=== PATIENT | female | born 1980 | race Hispanic/Latino ===

== ENCOUNTER 2016-08-19 08:56 | Emergency (ER) | payer MEDICAID, OTHER ==
[2016-08-19 08:56] VITALS: BMI 23.0
[2016-08-19 09:25] VITALS: TEMP 98.7; O2SAT 99
[2016-08-19] MEDS ORDERED: Sodium Chloride 0.9% 1,000 ML IV STA (09:53)
[2016-08-19 10:13] LABS: PH,URINE 6.5 (4.7-8.0); URINE BILIRUBIN NEGATIVE (NEGATIVE); URINE BLOOD NEGATIVE (NEGATIVE); URINE GLUCOSE (UA) NEGATIVE (NEGATIVE); URINE KETONE TRACE mg/dL (NEGATIVE); URINE LEUKOCYTE ESTERASE NEGATIVE Leu/uL (NEGATIVE); URINE PROTEIN 30 mg/dL (<30 mg/dL)
[2016-08-19 10:16] LABS: URINE APPEARANCE SL CLOUDY (CLEAR); URINE COLOR YELLOW (YELLOW)
[2016-08-19 10:24] LABS: ADD MANUAL DIFF? NO
[2016-08-19 10:25] LABS: URINE BACTERIA FEW (NEG); URINE CALCIUM OXALATE CRYSTALS FEW /hpf; URINE RBC NEGATIVE /hpf (0-2); URINE WBC 0 - 2 /hpf (0-6)
[2016-08-19 10:27] LABS: BASO # 0.05 K/mm3 (0.0-2.0); BASO % 0.8 % (0.0-3.0); EOS # 0.1 (0.0-0.7); EOS % 1.2 % (1.5-5.0); GRAN # 3.41 (1.4-6.5); GRAN % 51.1 % (50.0-68.0); HEMATOCRIT 41.8 % (36.0-48.0); LYMPH # 2.7 (1.2-3.4); LYMPH % 40.4 % (22.0-35.0); MEAN CELL VOLUME 89.3 fL (80.0-105.0); MEAN CORPUSCULAR HEMOGLOBIN 30.1 pg (25.0-35.0); MEAN CORPUSCULAR HGB CONC 33.7 g/dl (31.0-37.0); MEAN PLATELET VOLUME 9.7 fl (7.0-11.0); MONO # 0.4 (0.1-0.6); MONO % 6.5 % (1.0-6.0); PLATELET COUNT 211 10^3/uL (120.0-450.0); RED CELL DISTRIBUTION WIDTH 13.8 % (11.5-14.5); WHITE BLOOD COUNT 6.7 10^3/ul (4.5-11.0)
[2016-08-19] MEDS ORDERED: DiphenhydrAMINE 50 mg/ml Inj IVP STA (10:30)
[2016-08-19 10:48] LABS: INR 1.11 (0.93-1.08); PARTIAL THROMBOPLASTIN TIME 26.4 Seconds (23.7-30.8)
[2016-08-19 10:58] LABS: ALB/GLOB RATIO 1.2 (1.1-1.8); ALKALINE PHOSPHATASE 70 U/L (38-133); ALT/SGPT 25 U/L (7-56); AST/SGOT 38 U/L (15-39); BILIRUBIN,TOTAL 0.8 mg/dL (0.2-1.3); BLOOD UREA NITROGEN 25 mg/dL (7-21); CALCIUM 9.5 mg/dL (8.4-10.5); CARBON DIOXIDE 25 mmol/L (21-33); CHLORIDE 105 mmol/L (95-110); GFR AFRICAN-AMERICAN > 60; GLUCOSE,RANDOM 96 mg/dL (70-110); LIPASE 193 U/L (23-300); POTASSIUM 3.7 mmol/L (3.6-5.0); SODIUM 142 mmol/L (132-148); TOTAL PROTEIN 7.7 g/dL (5.8-8.3)
--- NOTE | 2016-08-19 11:01 | ED PDOC ---
Arrival/HPI - General Chief Complaint: Back Pain Time Seen by Provider: 08/19/16 09:25 Past Medical History - Infectious Disease Hx of Infectious Diseases: None - Tetanus Immunization Tetanus Immunization: Unknown - Cardiac Hx Cardiac Disorders: Yes Hx Congestive Heart Failure: No Hx Hypertension: Yes - Pulmonary Hx Respiratory Disorders: Yes Hx Asthma: Yes Hx Chronic Obstructive Pulmonary Disease (COPD): No - Neurological Hx Neurological Disorder: Yes Hx Migraine: Yes Hx Seizures: No - HEENT Hx HEENT Disorder: No - Renal Hx Renal Disorder: No - Endocrine/Metabolic Hx Endocrine Disorders: Yes Hx Hypothyroidism: Yes - Hematological/Oncological Hx Blood Disorders: No - Integumentary Hx Dermatological Disorder: No - Musculoskeletal/Rheumatological Hx Musculoskeletal Disorders: Yes Hx Arthritis: No Hx Fractures: Yes (left foot) Hx Rheumatoid Arthritis: No - Gastrointestinal Hx Gastrointestinal Disorders: No - Genitourinary/Gynecological Hx Genitourinary Disorders: No Hx Sexually Transmitted Diseases: No - Psychiatric Hx Psychophysiologic Disorder: No Hx Substance Use: No - Surgical History Hx Orthopedic Surgery: Yes Hx Tubal Ligation: Yes - Anesthesia Hx Anesthesia: Yes Hx Anesthesia Reactions: No Hx Malignant Hyperthermia: No - Suicidal Assessment Feels Threatened In Home Enviroment: No Family/Social History Smoking Status: Former Smoker Hx Alcohol Use: No Hx Substance Use: No Allergies/Home Meds Allergies/Adverse Reactions: Allergies clarithromycin [From Biaxin] Allergy (Verified 08/19/16 09:22) NAUSEA Penicillins Allergy (Verified 08/19/16 09:22) RASH sumatriptan [From Imitrex] Adverse Reaction (Verified 08/19/16 09:22) ANAPHYLAXIS sumatriptan succinate [From Imitrex] Adverse Reaction (Verified 08/19/16 09:22) ANAPHYLAXIS Home Medications: Home Meds Medication Instructions Recorded Confirmed Topiramate [Topamax] 100 mg PO BID 04/13/16 08/19/16 DULoxetine [Cymbalta] 60 mg PO DAILY 08/19/16 08/19/16 Physical Exam Vital Signs Temp Pulse Resp BP Pulse Ox 08/19/16 11:41 79 18 132/79 99 08/19/16 09:23 98.7 F 89 16 134/81 99 Medical Decision Making ED Course and Treatment: 08/19/16 11:01 I was available for consultation during PA evaluation. The chart was reviewed by me, and I agree with disposition. The documented history was done by the physician slip tender. The documented physical exam was done by the physician slip tender. The documented procedures were done by the physician slip tender. - Lab Interpretations Lab Results: 08/19/16 10:15 08/19/16 10:15 Lab Results 08/19/16 10:15: Sodium 142, Potassium 3.7, Chloride 105, Carbon Dioxide 25, Anion Gap 16, BUN 25 H, Creatinine 0.6, Est GFR ( Amer) > 60, Est GFR ( Non-Af Amer) > 60, Random Glucose 96, Calcium 9.5, Total Bilirubin 0.8, AST 38, ALT 25, Alkaline Phosphatase 70, Total Protein 7.7, Albumin 4.1, Globulin 3.6, Albumin/Globulin Ratio 1.2, Lipase 193 08/19/16 10:15: PT 12.0 H, INR 1.11 H, APTT 26.4 08/19/16 10:15: WBC 6.7 D, RBC 4.68, Hgb 14.1, Hct 41.8, MCV 89.3, MCH 30.1, MCHC 33.7, RDW 13.8, Plt Count 211, MPV 9.7, Gran % 51.1, Lymph % (Auto) 40.4 H , [place] % (Auto) 6.5 H, Eos % (Auto) 1.2 L, Baso % (Auto) 0.8, Gran # 3.41, Lymph # 2.7, [place] # 0.4, Eos # 0.1, Baso # 0.05 08/19/16 09:55: Urine Color Yellow, Urine Appearance Sl cloudy, Urine pH 6.5, Ur Specific [place] 1.025, Urine Protein 30 H, Urine Glucose (UA) Negative, Urine Ketones Trace H, Urine Blood Negative, Urine Nitrate Negative, Urine Bilirubin Negative, Urine Urobilinogen 1.0 H, Ur Leukocyte Esterase Negative, Urine RBC Negative, Urine WBC 0 - 2, Ur Epithelial Cells 10 - 12, Calcium Oxalate Crystal Few, Urine Bacteria Few - RAD Interpretation Radiology Orders: 08/19/16 09:53 ABD & PELVIS W/O PO OR IV CONT [CT] Stat - Medication Orders Current Medication Orders: Discontinued Medications Diphenhydramine HCl (Benadryl) 25 mg IVP STAT STA Stop: 08/19/16 10:31 Last Admin: 08/19/16 10:43 Dose: 25 mg Famotidine (Pepcid) 20 mg IVP STAT STA Stop: 08/19/16 09:54 Last Admin: 08/19/16 10:42 Dose: 20 mg Sodium Chloride (Sodium Chloride 0.9%) 1,000 mls @ 1,000 mls/hr IV .Q1H STA Stop: 08/19/16 10:52 Last Admin: 08/19/16 10:22 Dose: 1,000 mls/hr Ketorolac Tromethamine (Toradol) 30 mg IVP STAT STA Stop: 08/19/16 09:54 Last Admin: 08/19/16 10:42 Dose: 30 mg Metoclopramide HCl (Reglan) 10 mg IVP STAT STA Stop: 08/19/16 09:54 Last Admin: 08/19/16 10:42 Dose: 10 mg Disposition/Present on Arrival - Present on Arrival Any Indicators Present on Arrival: No History of DVT/PE: No History of Uncontrolled Diabetes: No Urinary Catheter: No History of Decub. Ulcer: No History Surgical Site Infection Following: None - Disposition Have Diagnosis and Disposition been Completed?: Yes Diagnosis: Migraine, Sciatica, Chronic pain, Abdominal pain Disposition: ELOPEMENT - ER ONLY Disposition Time: 12:00 Condition: STABLE Discharge Instructions (ExitCare): Acute Headache (ED), Abdominal Pain (ED), Chronic Back Pain (ED) Additional Instructions: Follow up with your doctor Return to ED for any new or worsening symptoms Referrals: Erwin Nichols JD, MD [Primary Care Provider] - Follow up with primary
--- NOTE | 2016-08-19 11:19 | CT ---
PROCEDURE: CT Abdomen and Pelvis without intravenous contrast HISTORY: Right sided abdominal/flank pain COMPARISON: None. TECHNIQUE: Without contrast.. Contrast Dose: Radiation dose: Total exam DLP = 318 mGy-cm. This CT exam was performed using one or more of the following dose reduction techniques: Automated exposure control, adjustment of the mA and/or kV according to patient size, and/or use of iterative reconstruction technique. FINDINGS: LOWER THORAX: Unremarkable. LIVER: Unremarkable. No gross lesion or ductal dilatation. GALLBLADDER AND BILE DUCTS: Unremarkable. PANCREAS: Unremarkable. No gross lesion or ductal dilatation. SPLEEN: Unremarkable. ADRENALS: Unremarkable. No mass. KIDNEYS AND URETERS: Unremarkable. No hydronephrosis. No solid mass. VASCULATURE: Unremarkable. No aortic aneurysm. BOWEL: Unremarkable. No obstruction. No gross mural thickening. APPENDIX: Unremarkable. Normal appendix. PERITONEUM: Unremarkable. No free fluid. No free air. LYMPH NODES: Unremarkable. No enlarged lymph nodes. BLADDER: Unremarkable. REPRODUCTIVE: Bilateral ovarian cysts. There is no fluid in the cul-de-sac BONES: No acute fracture. OTHER FINDINGS: None. IMPRESSION: No acute findings
--- NOTE | 2016-08-19 11:30 | ED PDOC ---
Arrival/HPI - General Chief Complaint: Back Pain Time Seen by Provider: 08/19/16 09:25 Historian: Patient - History of Present Illness Narrative History of Present Illness (Text): 08/19/16 11:22 35yo female with history of chronic back pain and migraine headache x 4days. States it started with back pain that radiates to her right lower leg. Started having headache, dizziness, nausea and vomiting this morning. States these are her usually symptoms with the headache x years. She sees a pain management and usually gets epidural for her back pain. Her last back pain was in May. She denies any tearing/ripping upper back pain. Denies urinary/fecal incontinence, urinary symptoms, fever, chills, focal weakness, diarrhea, constipation, trauma, any other complaint. Past Medical History - Provider Review Nursing Documentation Reviewed: Yes - Infectious Disease Hx of Infectious Diseases: None - Tetanus Immunization Tetanus Immunization: Unknown - Cardiac Hx Cardiac Disorders: Yes Hx Congestive Heart Failure: No Hx Hypertension: Yes - Pulmonary Hx Respiratory Disorders: Yes Hx Asthma: Yes Hx Chronic Obstructive Pulmonary Disease (COPD): No - Neurological Hx Neurological Disorder: Yes Hx Migraine: Yes Hx Seizures: No - HEENT Hx HEENT Disorder: No - Renal Hx Renal Disorder: No - Endocrine/Metabolic Hx Endocrine Disorders: Yes Hx Hypothyroidism: Yes - Hematological/Oncological Hx Blood Disorders: No - Integumentary Hx Dermatological Disorder: No - Musculoskeletal/Rheumatological Hx Musculoskeletal Disorders: Yes Hx Arthritis: No Hx Fractures: Yes (left foot) Hx Rheumatoid Arthritis: No - Gastrointestinal Hx Gastrointestinal Disorders: No - Genitourinary/Gynecological Hx Genitourinary Disorders: No Hx Sexually Transmitted Diseases: No - Psychiatric Hx Psychophysiologic Disorder: No Hx Substance Use: No - Surgical History Hx Orthopedic Surgery: Yes Hx Tubal Ligation: Yes - Anesthesia Hx Anesthesia: Yes Hx Anesthesia Reactions: No Hx Malignant Hyperthermia: No - Suicidal Assessment Feels Threatened In Home Enviroment: No Family/Social History - Physician Review Nursing Documentation Reviewed: Yes Family/Social History: Unknown Family HX Smoking Status: Former Smoker Hx Alcohol Use: No Hx Substance Use: No Allergies/Home Meds Allergies/Adverse Reactions: Allergies clarithromycin [From Biaxin] Allergy (Verified 08/19/16 09:22) NAUSEA Penicillins Allergy (Verified 08/19/16 09:22) RASH sumatriptan [From Imitrex] Adverse Reaction (Verified 08/19/16 09:22) ANAPHYLAXIS sumatriptan succinate [From Imitrex] Adverse Reaction (Verified 08/19/16 09:22) ANAPHYLAXIS Home Medications: Home Meds Medication Instructions Recorded Confirmed Topiramate [Topamax] 100 mg PO BID 04/13/16 08/19/16 DULoxetine [Cymbalta] 60 mg PO DAILY 08/19/16 08/19/16 Review of Systems - Physician Review All systems were reviewed & negative as marked: Yes - Review of Systems Constitutional: Normal Eyes: Normal ENT: Normal Respiratory: Normal Cardiovascular: Normal Gastrointestinal: Abdominal Pain, Nausea, Vomiting. absent: Constipation, Diarrhea, Hematochezia, Hematemesis Genitourinary Female: Normal Musculoskeletal: Normal Skin: Normal Neurological: Headache, Dizziness. absent: Focal Weakness, Gait Changes, Speech Changes Endocrine: Normal Hemo/Lymphatic: Normal Psychiatric: Normal Physical Exam Vital Signs Reviewed: Yes Vital Signs Temp Pulse Resp BP Pulse Ox 08/19/16 11:41 79 18 132/79 99 08/19/16 09:23 98.7 F 89 16 134/81 99 Temperature: Afebrile Blood Pressure: Normal Pulse: Regular Respiratory Rate: Normal Appearance: Positive for: Well-Appearing, Non-Toxic, Comfortable Pain Distress: None Mental Status: Positive for: Alert and Oriented X 3 - Systems Exam Head: Present: Atraumatic, Normocephalic Pupils: Present: PERRL Extroacular Muscles: Present: EOMI Conjunctiva: Present: Normal Mouth: Present: Moist Mucous Membranes Neck: Present: Normal Range of Motion Respiratory/Chest: Present: Clear to Auscultation, Good Air Exchange. No: Respiratory Distress, Accessory Muscle Use Cardiovascular: Present: Regular Rate and Rhythm, Normal S1, S2. No: Murmurs Abdomen: Present: Tenderness (Diffuse right sided abdominal tenderness), Normal Bowel Sounds, Other (Soft). No: Distention, Peritoneal Signs, Rebound, Guarding , McBurney's Point Tender, Rovsing's Sign Present Back: Present: Normal Inspection Upper Extremity: Present: Normal Inspection. No: Cyanosis, Edema Lower Extremity: Present: Normal Inspection. No: Edema Neurological: Present: GCS=15, CN II-XII Intact, Speech Normal Skin: Present: Warm, Dry, Normal Color. No: Rashes Psychiatric: Present: Alert, Oriented x 3, Normal Insight, Normal Concentration Medical Decision Making ED Course and Treatment: 08/19/16 17:02 PT presented in ED for stated history. On re evaluation pt states she feels much better. She was able to tolerate fluid. Lab was unremarkable. Abdominal CT was negative 08/19/16 17:54 Result was DW the pt. she was referred to her pain management for medication. Advised TRT ED for any new or worsening symptoms. - Lab Interpretations Lab Results: 08/19/16 10:15 08/19/16 10:15 Lab Results 08/19/16 10:15: WBC 6.7 D, RBC 4.68, Hgb 14.1, Hct 41.8, MCV 89.3, MCH 30.1, MCHC 33.7, RDW 13.8, Plt Count 211, MPV 9.7, Gran % 51.1, Lymph % (Auto) 40.4 H , [place] % (Auto) 6.5 H, Eos % (Auto) 1.2 L, Baso % (Auto) 0.8, Gran # 3.41, Lymph # 2.7, [place] # 0.4, Eos # 0.1, Baso # 0.05, PT 12.0 H, INR 1.11 H, APTT 26.4, Sodium 142, Potassium 3.7, Chloride 105, Carbon Dioxide 25, Anion Gap 16, BUN 25 H, Creatinine 0.6, Est GFR ( Amer) > 60, Est GFR (Non-Af Amer) > 60, Random Glucose 96, Calcium 9.5, Total Bilirubin 0.8, AST 38, ALT 25, Alkaline Phosphatase 70, Total Protein 7.7, Albumin 4.1, Globulin 3.6, Albumin/ Globulin Ratio 1.2, Lipase 193 08/19/16 09:55: Urine Color Yellow, Urine Appearance Sl cloudy, Urine pH 6.5, Ur Specific [place] 1.025, Urine Protein 30 H, Urine Glucose (UA) Negative, Urine Ketones Trace H, Urine Blood Negative, Urine Nitrate Negative, Urine Bilirubin Negative, Urine Urobilinogen 1.0 H, Ur Leukocyte Esterase Negative, Urine RBC Negative, Urine WBC 0 - 2, Ur Epithelial Cells 10 - 12, Calcium Oxalate Crystal Few, Urine Bacteria Few - RAD Interpretation Radiology Orders: 08/19/16 09:53 ABD & PELVIS W/O PO OR IV CONT [CT] Stat - Medication Orders Current Medication Orders: Discontinued Medications Diphenhydramine HCl (Benadryl) 25 mg IVP STAT STA Stop: 08/19/16 10:31 Last Admin: 08/19/16 10:43 Dose: 25 MG IVP Administration Document 08/19/16 10:43 ALA (Rec: 08/19/16 10:43 ALA [facility] [place] [id number]) Charges for Administration # of IVP Administrations 1 Famotidine (Pepcid) 20 mg IVP STAT STA Stop: 08/19/16 09:54 Last Admin: 08/19/16 10:42 Dose: 20 MG IVP Administration Document 08/19/16 10:42 ALA (Rec: 08/19/16 10:42 ALA [id number]) Charges for Administration # of IVP Administrations 1 Sodium Chloride (Sodium Chloride 0.9%) 1,000 mls @ 1,000 mls/hr IV .Q1H STA Stop: 08/19/16 10:52 Last Admin: 08/19/16 10:22 Dose: 1,000 MLS/HR eMAR Start Stop Document 08/19/16 10:22 ALA (Rec: 08/19/16 10:22 ALA [email or web address]) Intravenous Solution Start Date 08/19/16 Start Time 10:22 End Date 08/19/16 End time 11:22 Total Infusion Time 60 Ketorolac Tromethamine (Toradol) 30 mg IVP STAT STA Stop: 08/19/16 09:54 Last Admin: 08/19/16 10:42 Dose: 30 MG IVP Administration Document 08/19/16 10:42 ALA (Rec: 08/19/16 10:42 [facility]LA [email or web address]) Charges for Administration # of IVP Administrations 1 Metoclopramide HCl (Reglan) 10 mg IVP STAT STA Stop: 08/19/16 09:54 Last Admin: 08/19/16 10:42 Dose: 10 MG IVP Administration Document 08/19/16 10:42 ALA (Rec: 08/19/16 10:42 ALA [email or web address]) Charges for Administration # of IVP Administrations 1 Disposition/Present on Arrival - Present on Arrival Any Indicators Present on Arrival: No History of DVT/PE: No History of Uncontrolled Diabetes: No Urinary Catheter: No History of Decub. Ulcer: No History Surgical Site Infection Following: None - Disposition Have Diagnosis and Disposition been Completed?: Yes Diagnosis: Migraine, Sciatica, Chronic pain, Abdominal pain Disposition: ELOPEMENT - ER ONLY Disposition Time: 12:00 Patient Plan: Discharge Patient Problems: Current Active Problems Problem Status Diagnosed Head ache Acute Episode of syncope Acute DVT prophylaxis Acute Fall Acute Hypokalemia Acute Radiculopathy Acute Essential (primary) hypertension Chronic Condition: STABLE Discharge Instructions (ExitCare): Chronic Back Pain (ED), Abdominal Pain (ED) , Acute Headache (ED) Additional Instructions: Follow up with your doctor Return to ED for any new or worsening symptoms Referrals: Erwin Nichols JD, MD [Primary Care Provider] - Follow up with primary
[2016-08-19 11:43] VITALS: BP 132/79; PULSE 79; RESP 18
== END 2016-08-19 11:45 | disposition left against medical advice (07) ==
LOC: ED 08:56
DX: G43.909 Migraine, unspecified, not intractable, without status migrainosus (principal); M54.30 Sciatica, unspecified side; G89.29 Other chronic pain; R10.9 Unspecified abdominal pain; I10 Essential (primary) hypertension; Z87.891 Personal history of nicotine dependence
CPT/HCPCS: 74176; 80053; 81001; 83690; 85025; 85610; 85730; 96361; 96374; 96375; 99283; J1200; J1885; J2765; J7040

== ENCOUNTER 2016-09-01 00:06 | Emergency (ER) | payer OTHER ==
[2016-09-01 00:07] VITALS: BMI 23.0
[2016-09-01 00:32] VITALS: TEMP 98.7
--- NOTE | 2016-09-01 00:39 | ED PDOC ---
Arrival/HPI - General Chief Complaint: Abdominal Pain Time Seen by Provider: 09/01/16 00:28 Historian: Patient - History of Present Illness Narrative History of Present Illness (Text): 09/01/16 00:36 Philly Toussaint is a 35 year old female, whose past medical history includes chronic back pain, herniated disc, cervical spine fusion, degenerative joint disease, hypertension, and migraines, who presents to the ED complaining of constipation. Patient states she has been constipated for the last 2 weeks despite medications taken as prescribed by her PMD with associated nausea and abdominal fullness. Patient also complaining of some discomfort to her left breast which she notes she has experienced in the past and is currently being evaluated for by her [employer]. Patient denies any fever, chest pain, shortness of breath, vomiting, diarrhea, appetite changes, urinary symptoms, or any other complaints. Patient regularly takes Suboxone for chronic pain. PMD: Dr. Immanuel Nichols Time/Duration: Other (2 weeks) Symptom Onset: Gradual Symptom Course: Unchanged Activities at Onset: Rest, Light Context: Home Past Medical History - Provider Review Nursing Documentation Reviewed: Yes - Infectious Disease Hx of Infectious Diseases: None - Tetanus Immunization Tetanus Immunization: Unknown - Cardiac Hx Cardiac Disorders: Yes Hx Congestive Heart Failure: No Hx Hypertension: Yes - Pulmonary Hx Respiratory Disorders: Yes Hx Asthma: Yes Hx Chronic Obstructive Pulmonary Disease (COPD): No - Neurological Hx Neurological Disorder: Yes Hx Migraine: Yes Hx Seizures: No - HEENT Hx HEENT Disorder: No - Renal Hx Renal Disorder: No - Endocrine/Metabolic Hx Endocrine Disorders: Yes - Hematological/Oncological Hx Blood Disorders: No - Integumentary Hx Dermatological Disorder: No - Musculoskeletal/Rheumatological Hx Musculoskeletal Disorders: Yes Hx Arthritis: No Hx Back Pain: Yes Hx Fractures: Yes (left foot) Hx Rheumatoid Arthritis: No Hx Spinal Stenosis: Yes - Gastrointestinal Hx Gastrointestinal Disorders: No - Genitourinary/Gynecological Hx Genitourinary Disorders: No Hx Sexually Transmitted Diseases: No - Psychiatric Hx Psychophysiologic Disorder: No Hx Substance Use: No - Surgical History Hx Orthopedic Surgery: Yes Hx Tubal Ligation: Yes Other/Comment: cervical fusion sx - Anesthesia Hx Anesthesia: Yes Hx Anesthesia Reactions: No Hx Malignant Hyperthermia: No - Suicidal Assessment Feels Threatened In Home Enviroment: No Family/Social History - Physician Review Nursing Documentation Reviewed: Yes Family/Social History: No Known Family HX Smoking Status: Former Smoker Hx Alcohol Use: No Hx Substance Use: No Allergies/Home Meds Allergies/Adverse Reactions: Allergies clarithromycin [From Biaxin] Allergy (Verified 08/19/16 09:22) NAUSEA Penicillins Allergy (Verified 08/19/16 09:22) RASH sumatriptan [From Imitrex] Adverse Reaction (Verified 08/19/16 09:22) ANAPHYLAXIS sumatriptan succinate [From Imitrex] Adverse Reaction (Verified 08/19/16 09:22) ANAPHYLAXIS Home Medications: Home Meds Medication Instructions Recorded Confirmed Topiramate [Topamax] 100 mg PO BID 04/13/16 09/01/16 DULoxetine [Cymbalta] 60 mg PO DAILY 08/19/16 09/01/16 Buprenorphine HCl/Naloxone HCl 1 film SL BID 09/01/16 09/01/16 [Suboxone 8 mg-2 mg Sl Film] hydroCHLOROthiazide [Hydrodiuril] 1 tab PO DAILY 09/01/16 09/01/16 Review of Systems - Physician Review All systems were reviewed & negative as marked: Yes - Review of Systems Constitutional: Normal. absent: Fevers Eyes: Normal ENT: Normal Respiratory: Normal. absent: SOB, Cough Cardiovascular: Normal. absent: Chest Pain Gastrointestinal: Abdominal Pain, Constipation, Nausea Genitourinary Female: Normal. absent: Dysuria, Frequency, Hematuria, Urine Output Changes Musculoskeletal: Normal. absent: Back Pain, Neck Pain Skin: Other (+left breast discomfort). absent: Rash Neurological: Normal. absent: Headache, Dizziness Endocrine: Normal Hemo/Lymphatic: Normal Psychiatric: Normal Physical Exam Vital Signs Reviewed: Yes Vital Signs Temp Pulse Resp BP Pulse Ox 09/01/16 00:23 98.7 F 83 18 113/56 L 99 Temperature: Afebrile Blood Pressure: Normal Pulse: Regular Respiratory Rate: Normal Appearance: Positive for: Well-Appearing, Non-Toxic, Comfortable Pain Distress: None Mental Status: Positive for: Alert and Oriented X 3 - Systems Exam Head: Present: Atraumatic, Normocephalic Pupils: Present: PERRL Extroacular Muscles: Present: EOMI Conjunctiva: Present: Normal Mouth: Present: Moist Mucous Membranes Neck: Present: Normal Range of Motion Respiratory/Chest: Present: Clear to Auscultation, Good Air Exchange. No: Respiratory Distress, Accessory Muscle Use Cardiovascular: Present: Regular Rate and Rhythm, Normal S1, S2. No: Murmurs Abdomen: Present: Normal Bowel Sounds. No: Tenderness, Distention, Peritoneal Signs Breast/Axillary: No: Erythema (No evidence of any erythema or swelling), Fluctuance, Masses, Swelling, Tender to Palpation Upper Extremity: Present: Normal Inspection. No: Cyanosis, Edema Lower Extremity: Present: Normal Inspection. No: Edema Neurological: Present: GCS=15, CN II-XII Intact, Speech Normal Skin: Present: Warm, Dry, Normal Color. No: Rashes Psychiatric: Present: Alert, Oriented x 3, Normal Insight, Normal Concentration Medical Decision Making ED Course and Treatment: 09/01/16 00:36 Impression: 35 y/o female c/o constipation with abdominal fullness and nausea. Differential Diagnosis included but are not limited to: constipation Plan: -- CT Abdomen and Pelvis w/o contrast -- Labs, lipase -- UA -- IV fluids -- Reassess and disposition Prior Visits: Notes and results from previous visits were reviewed. Progress Notes: 09/01/16 01:59 Reviewed radiology, CT Abdomen and Pelvis shows: No acute findings. 09/01/16 02:25 On reevaluation the patient feels better and is in no acute distress. I have discussed the results and plan with the patient, who expresses understanding. Patient given the opportunity to ask question, all questions were answered and there is agreement with the plan to discharge the patient home. Patient is stable for discharge. Patient was instructed to follow up with physician/clinic in 1-2 days or return if symptoms persist/worsen or new concerning symptoms arise. - Lab Interpretations Lab Results: 09/01/16 00:45 09/01/16 00:45 Lab Results 09/01/16 00:45: Urine Color Yellow, Urine Appearance Sl cloudy, Urine pH 8.0, Ur Specific [place] 1.015, Urine Protein Trace H, Urine Glucose (UA) Negative, Urine Ketones Negative, Urine Blood Negative, Urine Nitrate Negative, Urine Bilirubin Negative, Urine Urobilinogen 0.2, Ur Leukocyte Esterase Negative, Urine RBC 0 - 2, Urine WBC 0 - 2, Ur Epithelial Cells 0 - 2, Amorphous Sediment Small, Urine Bacteria Rare, Urine HCG, Qual Negative 09/01/16 00:45: WBC 7.8, RBC 4.10, Hgb 12.4, Hct 36.2, MCV 88.3, MCH 30.2, MCHC 34.3, RDW 14.0, Plt Count 312, MPV 9.8 09/01/16 00:45: Sodium 139, Potassium 3.4 L, Chloride 104, Carbon Dioxide 24, Anion Gap 14, BUN 10, Creatinine 0.7, Est GFR ( Amer) > 60, Est GFR (Non- Af Amer) > 60, Random Glucose 81, Calcium 8.9, Total Bilirubin 0.7, AST 47 H, ALT 19, Alkaline Phosphatase 55, Total Protein 7.5, Albumin 3.9, Globulin 3.5, Albumin/Globulin Ratio 1.1, Lipase 86 I have reviewed the lab results: Yes - RAD Interpretation Narrative RAD Interpretations (Text): CT Abdomen and Pelvis shows: Lower thorax: No acute findings. ABDOMEN: Liver: Unremarkable. Gallbladder and bile ducts: Unremarkable. No calcified stones. No ductal dilation. Pancreas: Unremarkable. No ductal dilation. Spleen: Unremarkable. No splenomegaly. Adrenals: Unremarkable. No mass. Kidneys and ureters: Unremarkable. No obstructing stones. No hydronephrosis. Stomach and bowel: There is stool throughout the colon. There is no evidence for bowel obstruction. No mucosal thickening. Appendix: The appendix is visualized and appears normal. PELVIS: Bladder: Unremarkable. No stones. Reproductive: Unremarkable as visualized. ABDOMEN and PELVIS: Intraperitoneal space: Unremarkable. No free air. No significant fluid collection. Bones/joints: No acute fracture. No dislocation. Soft tissues: Unremarkable. Vasculature: Unremarkable. No abdominal aortic aneurysm. Lymph nodes: Unremarkable. No enlarged lymph nodes. IMPRESSION: No acute findings. 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 - Medication Orders Current Medication Orders: Discontinued Medications Sodium Chloride (Sodium Chloride 0.9%) 1,000 mls @ 999 mls/hr IV .Q1H1M STA Stop: 09/01/16 01:41 Last Admin: 09/01/16 00:06 Dose: 999 mls/hr Lactulose (Enulose) 20 gm PO ONCE STA Stop: 09/01/16 02:17 Magnesium Citrate (Citrate Of Mag) 300 ml PO ONCE ONE Stop: 09/01/16 02:16 Potassium Chloride (K-Dur 20 Meq Er Tab) 20 meq PO STAT STA Stop: 09/01/16 02:23 - Scribe Statement The provider has reviewed the documentation as recorded by the Karina Kincaid Provider Attestation: All medical record entries made by the Lastibkanchan were at my direction and personally dictated by me. I have reviewed the chart and agree that the record accurately reflects my personal performance of the history, physical exam, medical decision making, and the department course for this patient. I have also personally directed, reviewed, and agree with the discharge instructions and disposition. Disposition/Present on Arrival - Present on Arrival Any Indicators Present on Arrival: No History of DVT/PE: No History of Uncontrolled Diabetes: No Urinary Catheter: No History of Decub. Ulcer: No History Surgical Site Infection Following: None - Disposition Have Diagnosis and Disposition been Completed?: Yes Diagnosis: Constipation Disposition: HOME/ ROUTINE Disposition Time: 02:23 Patient Plan: Discharge Patient Problems: Current Active Problems Problem Status Onset Constipation Acute Condition: STABLE Discharge Instructions (ExitCare): Constipation (ED), High Fiber Diet (ED) Additional Instructions: Drink plenty of liquids/take meds as prescribed/continue Miralax as prescribed/ follow up with your doctor this week Prescriptions: Docusate [Colace] 100 mg PO BID PRN #24 cap PRN Reason: Constipation
[2016-09-01] MEDS ORDERED: Sodium Chloride 0.9% 1,000 ML IV STA (00:41)
[2016-09-01 00:52] LABS: URINE BILIRUBIN NEGATIVE (NEGATIVE); URINE BLOOD NEGATIVE (NEGATIVE); URINE GLUCOSE (UA) NEGATIVE (NEGATIVE); URINE KETONE NEGATIVE (NEGATIVE); URINE LEUKOCYTE ESTERASE NEGATIVE Leu/uL (NEGATIVE); URINE PROTEIN TRACE mg/dL (<30 mg/dL); URINE UROBILINOGEN 0.2 E.U./dL (<1 E.U./dL)
[2016-09-01 01:05] LABS: URINE APPEARANCE SL CLOUDY (CLEAR); URINE COLOR YELLOW (YELLOW)
[2016-09-01 01:07] LABS: URINE EPITHELIAL CELLS 0 - 2 /hpf (0-5); URINE RBC 0 - 2 /hpf (0-2); URINE WBC 0 - 2 /hpf (0-6)
[2016-09-01 01:08] LABS: URINE AMORPHOUS SEDIMENT SMALL; URINE BACTERIA RARE (NEG)
[2016-09-01 01:18] LABS: ALB/GLOB RATIO 1.1 (1.1-1.8); ALKALINE PHOSPHATASE 55 U/L (38-133); ALT/SGPT 19 U/L (7-56); AST/SGOT 47 U/L (15-39); BILIRUBIN,TOTAL 0.7 mg/dL (0.2-1.3); BLOOD UREA NITROGEN 10 mg/dL (7-21); CALCIUM 8.9 mg/dL (8.4-10.5); CARBON DIOXIDE 24 mmol/L (21-33); CHLORIDE 104 mmol/L (98-107); GFR AFRICAN-AMERICAN > 60; GLUCOSE,RANDOM 81 mg/dL (70-110); LIPASE 86 U/L (23-300); SODIUM 139 mmol/L (132-148); TOTAL PROTEIN 7.5 g/dL (5.8-8.3)
[2016-09-01 01:19] LABS: POTASSIUM 3.4 mmol/L (3.6-5.0)
[2016-09-01 01:23] LABS: HEMATOCRIT 36.2 % (36.0-48.0); MEAN CELL VOLUME 88.3 fL (80.0-105.0); MEAN CORPUSCULAR HEMOGLOBIN 30.2 pg (25.0-35.0); MEAN CORPUSCULAR HGB CONC 34.3 g/dl (31.0-37.0); MEAN PLATELET VOLUME 9.8 fl (7.0-11.0); WHITE BLOOD COUNT 7.8 10^3/ul (4.5-11.0)
[2016-09-01] MEDS ORDERED: Magnesium Citrate Oral SOL (300 ml) PO ONE (02:15)
[2016-09-01] MEDS ORDERED: Potassium Chloride 20 mEq ER Tab PO STA (02:22)
[2016-09-01 02:39] VITALS: BP 118/64; PULSE 82; RESP 16; O2SAT 100
--- NOTE | 2016-09-01 07:22 | CT ---
PROCEDURE: CT Abdomen and Pelvis without intravenous contrast HISTORY: pain COMPARISON: None. TECHNIQUE: Technique. Contrast Dose: Radiation dose: Total exam DLP = 403 mGy-cm. This CT exam was performed using one or more of the following dose reduction techniques: Automated exposure control, adjustment of the mA and/or kV according to patient size, and/or use of iterative reconstruction technique. FINDINGS: LOWER THORAX: Unremarkable. LIVER: Unremarkable. No gross lesion or ductal dilatation. GALLBLADDER AND BILE DUCTS: Unremarkable. PANCREAS: Unremarkable. No gross lesion or ductal dilatation. SPLEEN: Unremarkable. ADRENALS: Unremarkable. No mass. KIDNEYS AND URETERS: Unremarkable. No hydronephrosis. No solid mass. VASCULATURE: Unremarkable. No aortic aneurysm. BOWEL: Unremarkable. No obstruction. No gross mural thickening. APPENDIX: Unremarkable. Normal appendix. PERITONEUM: Unremarkable. No free fluid. No free air. LYMPH NODES: Unremarkable. No enlarged lymph nodes. BLADDER: Unremarkable. REPRODUCTIVE: Unremarkable. BONES: No acute fracture. OTHER FINDINGS: None. IMPRESSION: Unremarkable non contrast enhanced CT of the abdomen and pelvis.
== END 2016-09-01 02:41 | disposition home or self-care (01) ==
LOC: ED 00:06
DX: K59.00 Constipation, unspecified (principal)
CPT/HCPCS: 74176; 80053; 81001; 83690; 84703; 85027; 99284; J7040

== ENCOUNTER 2016-09-20 18:49 | Emergency (ER) | payer OTHER ==
[2016-09-20 18:50] VITALS: BMI 23.0
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
[2016-09-20 19:22] VITALS: BP 114/69; PULSE 99; RESP 18; TEMP 98.2; O2SAT 100
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
== END 2016-09-20 20:35 | disposition home or self-care (01) ==
LOC: ED 18:49
DX: M54.5 Low back pain (principal); G89.29 Other chronic pain; K59.00 Constipation, unspecified
CPT/HCPCS: 72110; 96372; 99282; J1885; J2212

== ENCOUNTER 2016-12-31 22:09 | Emergency (ER) | payer OTHER ==
[2016-12-31 22:35] VITALS: BMI 22.6
[2016-12-31 22:44] VITALS: RESP 16; TEMP 98.6
--- NOTE | 2016-12-31 23:36 | ED PDOC ---
Arrival/HPI - General Chief Complaint: Psychiatric Evaluation Time Seen by Provider: 12/31/16 23:31 Historian: Patient - History of Present Illness Narrative History of Present Illness (Text): 12/31/16 23:31 This 36 yo female with pmh chronic back pain, anxiety, depression, presents to this ED by BLS for evaluation of depression x 2 days. Patient stated she is under a lot of stress in her personal life. She has been depressed and scratching her left wrist. Patient denies hallucination, substance abuse, SI, or HI. Patient noted chronic back pain, and [place]. Time/Duration: Other (2 days) Context: Home Past Medical History - Provider Review Nursing Documentation Reviewed: Yes - Infectious Disease Hx of Infectious Diseases: None - Tetanus Immunization Tetanus Immunization: Unknown - Cardiac Hx Cardiac Disorders: Yes Hx Congestive Heart Failure: No Hx Hypertension: Yes - Pulmonary Hx Respiratory Disorders: Yes Hx Asthma: Yes Hx Chronic Obstructive Pulmonary Disease (COPD): No - Neurological Hx Neurological Disorder: Yes Hx Headaches: Yes Hx Migraine: Yes Hx Seizures: No - HEENT Hx HEENT Disorder: No - Renal Hx Renal Disorder: No - Endocrine/Metabolic Hx Endocrine Disorders: Yes - Hematological/Oncological Hx Blood Disorders: No - Integumentary Hx Dermatological Disorder: No - Musculoskeletal/Rheumatological Hx Musculoskeletal Disorders: Yes Hx Arthritis: No Hx Back Pain: Yes Hx Fractures: Yes (left foot) Hx Rheumatoid Arthritis: No Hx Spinal Stenosis: Yes - Gastrointestinal Hx Gastrointestinal Disorders: No - Genitourinary/Gynecological Hx Genitourinary Disorders: No Hx Sexually Transmitted Diseases: No - Psychiatric Hx Psychophysiologic Disorder: No Hx Substance Use: No - Surgical History Hx Orthopedic Surgery: Yes Hx Tubal Ligation: Yes Other/Comment: cervical fusion sx - Anesthesia Hx Anesthesia: Yes Hx Anesthesia Reactions: No Hx Malignant Hyperthermia: No - Suicidal Assessment Feels Threatened In Home Enviroment: No Family/Social History - Physician Review Nursing Documentation Reviewed: Yes Family/Social History: Other (non-contributory) Smoking Status: Heavy Smoker > 10 Cigarettes Daily Hx Alcohol Use: No Hx Substance Use: No Allergies/Home Meds Allergies/Adverse Reactions: Allergies clarithromycin [From Biaxin] Allergy (Verified 09/20/16 19:28) NAUSEA Penicillins Allergy (Verified 09/20/16 19:28) RASH sumatriptan [From Imitrex] Adverse Reaction (Verified 09/20/16 19:28) ANAPHYLAXIS sumatriptan succinate [From Imitrex] Adverse Reaction (Verified 09/20/16 19:28) ANAPHYLAXIS Home Medications: Home Meds Medication Instructions Recorded Confirmed Topiramate [Topamax] 100 mg PO BID 04/13/16 09/01/16 DULoxetine [Cymbalta] 60 mg PO DAILY 08/19/16 09/01/16 Buprenorphine HCl/Naloxone HCl 1 film SL BID 09/01/16 09/01/16 [Suboxone 8 mg-2 mg Sl Film] hydroCHLOROthiazide [Hydrodiuril] 1 tab PO DAILY 09/01/16 09/01/16 Review of Systems - Review of Systems Constitutional: Normal. absent: Fatigue, Weight Change, Fevers Eyes: Normal ENT: Normal Respiratory: Normal. absent: SOB, Cough Cardiovascular: Normal. absent: Chest Pain, Palpitations Gastrointestinal: Normal. absent: Abdominal Pain, Nausea, Vomiting Genitourinary Female: Normal. absent: Dysuria, Frequency, Hematuria Musculoskeletal: Back Pain (chronic pain). absent: Neck Pain, Joint Swelling Skin: Normal. absent: Rash, Pruritis Neurological: Headache. absent: Dizziness, Focal Weakness, Gait Changes, Speech Changes, Facial Droop Endocrine: Normal Hemo/Lymphatic: Normal Psychiatric: Anxiety, Depression. absent: Suicidal Ideation Physical Exam Vital Signs Temp Pulse Resp BP Pulse Ox 12/31/16 22:40 98.6 F 70 16 129/70 98 Temperature: Afebrile Blood Pressure: Normal Pulse: Regular Respiratory Rate: Normal Appearance: Positive for: Well-Appearing, Non-Toxic, Comfortable Pain Distress: None Mental Status: Positive for: Alert and Oriented X 3 - Systems Exam Head: Present: Atraumatic, Normocephalic Pupils: Present: PERRL Extroacular Muscles: Present: EOMI Conjunctiva: Present: Normal Ears: Present: Normal, NORMAL TM, Normal Canal. No: Erythema, TM Bulging, Fluid Mouth: Present: Moist Mucous Membranes Nose (External): Present: Atraumatic Nose (Internal): Present: Normal Inspection Neck: Present: Normal Range of Motion. No: Meningeal Signs, MIDLINE TENDERNESS Respiratory/Chest: Present: Clear to Auscultation, Good Air Exchange. No: Respiratory Distress, Accessory Muscle Use Cardiovascular: Present: Regular Rate and Rhythm, Normal S1, S2. No: Murmurs Abdomen: Present: Normal Bowel Sounds. No: Tenderness, Distention, Peritoneal Signs Back: Present: Normal Inspection Upper Extremity: Present: Normal ROM, NORMAL PULSES, Neurovascularly Intact, Capillary Refill < 2s, Other ((+) linear abrasion on left wrist, multiple). No : Cyanosis, Edema Lower Extremity: Present: Normal Inspection, NORMAL PULSES, Normal ROM, Neurovascularly Intact, Capillary Refill < 2 s. No: Edema, CALF TENDERNESS Neurological: Present: GCS=15, CN II-XII Intact, Speech Normal, Motor Func Grossly Intact, Normal Sensory Function, Normal Cerebellar Funct, Gait Normal Skin: Present: Warm, Dry, Normal Color. No: Rashes Psychiatric: Present: Alert, Oriented x 3, Normal Insight, Normal Concentration Medical Decision Making ED Course and Treatment: 01/01/17 00:10 Patient refused CXR 01/01/17 02:10 Kimberlee hicks came to evaluate patient. She stated she reviewed this case with psychiatrist, who recommended to d/c patient home and to /u [facility] as out-pt. 01/01/17 02:11 Labs demonstrates Hypokalemia 2.7. Patient was recommended to stay in the hospital fo admission. She refused to stay in the hospital, and she wants to sign AMA. Patient understood risk of MT, , permanent disability, chronic suffering. Patient alert and oriented x 3. Patient has a steady gait, and normal speech. 01/01/17 02:43 Leaving Against Medical Advice (AMA): This patient is choosing to leave against medical advice. The EP has personally explained to the pt that choosing to do so may result in permanent bodily harm or . The EP discussed at great length that without further evaluation and monitoring there may be unforeseen circumstances and/or deterioration causing permanent bodily harm or as a result of their choice. The pt verbalized these risks back to the physician in laymans terms. The pt is alert, oriented, and shows the mental capacity to make clear decisions regarding the pts health care at this time. The pt continues to wish to leave against medical advice. In light of the pts decision to leave AMA, follow-up has been recommended and the pt is aware of the importance of following up as instructed. The pt has been advised that they should return to the ED immediately if they change their mind at any time, or if thier condition begins to change or worsen in any way. Re-evaluation Time: 02:13 Reassessment Condition: Re-examined, Unchanged - Lab Interpretations Lab Results: 01/01/17 00:47 01/01/17 00:47 Lab Results 01/01/17 00:47: Alcohol, Quantitative 135 H 01/01/17 00:47: Salicylates < 1 L, Acetaminophen < 10.0 L 01/01/17 00:47: Sodium 139, Potassium 2.7 L* D, Chloride 100, Carbon Dioxide 24 , Anion Gap 18, BUN 15, Creatinine 0.8, Est GFR ( Amer) > 60, Est GFR ( Non-Af Amer) > 60, Random Glucose 94, Calcium 9.9, Total Bilirubin 0.5, AST 27, ALT 20, Alkaline Phosphatase 67, Total Protein 7.4, Albumin 4.5, Globulin 2.9, Albumin/Globulin Ratio 1.6 01/01/17 00:47: WBC 9.1, RBC 4.55, Hgb 13.8, Hct 39.5, MCV 86.8, MCH 30.3, MCHC 34.9, RDW 14.3, Plt Count 291, MPV 9.4, Gran % 53.6, Lymph % (Auto) 38.9 H, [place] % (Auto) 5.8, Eos % (Auto) 1.4 L, Baso % (Auto) 0.3, Gran # 4.88, Lymph # 3.6 H, Payette # 0.5, Eos # 0.1, Baso # 0.03 12/31/16 23:50: Urine Opiates Screen Negative, Urine Methadone Screen Negative, Ur Barbiturates Screen Negative, Ur Phencyclidine Scrn Negative, Ur Amphetamines Screen Negative, U Benzodiazepines Scrn Positive H, U Oth Cocaine Metabols Negative, U Cannabinoids Screen Negative 12/31/16 23:50: Urine Color Yellow, Urine Appearance Clear, Urine pH 6.5, Ur Specific Hammond <= 1.005, Urine Protein Negative, Urine Glucose (UA) Negative, Urine Ketones Negative, Urine Blood Negative, Urine Nitrate Negative, Urine Bilirubin Negative, Urine Urobilinogen 0.2, Ur Leukocyte Esterase Negative, Urine HCG, Qual Negative I have reviewed the lab results: Yes Interpretation: Abnormal lab values - RAD Interpretation Radiology Orders: 12/31/16 23:32 CHEST PORTABLE [RAD] Stat - EKG Interpretation Interpreted by ED Physician: Yes (NSR @ [address] changes) Type: 12 lead EKG Comparison: No previous EKG avail. - Medication Orders Current Medication Orders: Potassium Chloride (Potassium Chloride 20 Meq/100 Ml) 20 meq in 100 mls @ 50 mls/hr IVPB ONCE ONE Stop: 01/01/17 03:48 Last Admin: 01/01/17 02:28 Dose: Not Given Non-Admin Reason: Patient Refused Discontinued Medications Sodium Chloride (Sodium Chloride 0.9%) 500 mls @ 999 mls/hr IV .Q31M STA Stop: 01/01/17 02:17 Last Admin: 01/01/17 02:29 Dose: Not Given Non-Admin Reason: Patient Refused Ketorolac Tromethamine (Toradol) 30 mg IM STAT STA Stop: 12/31/16 23:32 Last Admin: 01/01/17 01:00 Dose: 30 mg Potassium Chloride (K-Dur 20 Meq Er Tab) 60 meq PO STAT STA Stop: 01/01/17 01:49 Last Admin: 01/01/17 02:17 Dose: 60 meq Tetanus/Reduced Diphtheria/Acell Pertussis (Boostrix Vaccine Inj) 0.5 ml IM .ONCE ONE Stop: 12/31/16 23:38 Last Admin: 01/01/17 01:01 Dose: 0.5 ml Disposition/Present on Arrival - Present on Arrival Any Indicators Present on Arrival: No History of DVT/PE: No History of Uncontrolled Diabetes: No Urinary Catheter: No History of Decub. Ulcer: No History Surgical Site Infection Following: None - Disposition Have Diagnosis and Disposition been Completed?: Yes Diagnosis: Depression, Hypokalemia, Alcohol abuse Disposition: AGAINST MEDICAL ADVICE Disposition Time: 02:16 Patient Problems: Current Active Problems Problem Status Onset Depression Acute Hypokalemia Acute Alcohol abuse Acute Condition: UNKNOWN Referrals: Erwin Nichols JD, MD [Primary Care Provider] - Follow up with primary Forms: [employer] (ML4D) (Nepali)
[2016-12-31] MEDS ORDERED: TDAP Vaccine 0.5 mL Syr IM ONE (23:37)
[2016-12-31 23:58] LABS: PH,URINE 6.5 (4.7-8.0); URINE BILIRUBIN NEGATIVE (NEGATIVE); URINE BLOOD NEGATIVE (NEGATIVE); URINE GLUCOSE (UA) NEGATIVE (NEGATIVE); URINE KETONE NEGATIVE (NEGATIVE); URINE LEUKOCYTE ESTERASE NEGATIVE Leu/uL (NEGATIVE); URINE PROTEIN NEGATIVE mg/dL (<30 mg/dL); URINE UROBILINOGEN 0.2 E.U./dL (<1 E.U./dL)
[2017-01-01 00:07] LABS: URINE APPEARANCE CLEAR (CLEAR); URINE COLOR YELLOW (YELLOW)
[2017-01-01 00:57] LABS: BASO # 0.03 K/mm3 (0.0-2.0); BASO % 0.3 % (0.0-3.0); EOS # 0.1 (0.0-0.7); EOS % 1.4 % (1.5-5.0); GRAN # 4.88 (1.4-6.5); GRAN % 53.6 % (50.0-68.0); HEMATOCRIT 39.5 % (36.0-48.0); LYMPH # 3.6 (1.2-3.4); LYMPH % 38.9 % (22.0-35.0); MEAN CELL VOLUME 86.8 fl (80.0-105.0); MEAN CORPUSCULAR HEMOGLOBIN 30.3 pg (25.0-35.0); MEAN CORPUSCULAR HGB CONC 34.9 g/dl (31.0-37.0); MEAN PLATELET VOLUME 9.4 fl (7.0-11.0); MONO # 0.5 (0.1-0.6); MONO % 5.8 % (1.0-6.0); RED CELL DISTRIBUTION WIDTH 14.3 % (11.5-14.5); WHITE BLOOD COUNT 9.1 10^3/ul (4.5-11.0)
[2017-01-01 01:42] LABS: ALB/GLOB RATIO 1.6 (1.1-1.8); ALKALINE PHOSPHATASE 67 U/L (38-126); ALT/SGPT 20 U/L (7-56); AST/SGOT 27 U/L (14-36); BILIRUBIN,TOTAL 0.5 mg/dL (0.2-1.3); BLOOD UREA NITROGEN 15 mg/dL (7-21); CALCIUM 9.9 mg/dL (8.4-10.5); CARBON DIOXIDE 24 mmol/L (21-33); CHLORIDE 100 mmol/L (98-107); GFR AFRICAN-AMERICAN > 60; GLUCOSE,RANDOM 94 mg/dL (70-110); SODIUM 139 mmol/L (132-148); TOTAL PROTEIN 7.4 g/dL (5.8-8.3)
[2017-01-01 01:44] LABS: POTASSIUM 2.7 mmol/L (3.6-5.0)
[2017-01-01] MEDS ORDERED: Potassium Chloride 20 mEq ER Tab PO STA (01:48)
[2017-01-01] MEDS: Sodium Chloride 0.9% 500 ML IV STA ×2 (02:19→02:29)
[2017-01-01 03:06] VITALS: BP 116/81; PULSE 69; O2SAT 99
--- NOTE | 2017-01-01 17:52 | CARD ---
APPROVED REPORT EKG Measurement Heart [id number] OR 156P-1 [id number] <Conclusion> Normal sinus rhythm Nonspecific ST abnormality Abnormal ECG
== END 2017-01-01 02:35 | disposition left against medical advice (07) ==
LOC: ED 22:09
DX: F32.9 Major depressive disorder, single episode, unspecified (principal); E87.6 Hypokalemia; F10.10 Alcohol abuse, uncomplicated; Y90.6 Blood alcohol level of 120-199 mg/100 ml; Z23 Encounter for immunization
CPT/HCPCS: 80053; 80320; 80324; 80329; 80345; 80346; 80349; 80353; 80358; 80361; 81003; 83992; 84703; 85025; 90471; 90715; 90791; 93005; 96372; 99284; J1885

== ENCOUNTER 2017-01-02 12:52 | Emergency (ER) | payer OTHER ==
[2017-01-02 12:53] VITALS: BMI 22.6
[2017-01-02 13:13] VITALS: RESP 18; TEMP 98.8
[2017-01-02 13:38] VITALS: O2SAT 98
[2017-01-02] MEDS ORDERED: Sodium Chloride 0.9% 1,000 ML IV STA (13:49)
[2017-01-02 14:22] LABS: BASO # 0.03 K/mm3 (0.0-2.0); BASO % 0.5 % (0.0-3.0); EOS # 0.1 (0.0-0.7); GRAN # 4.16 (1.4-6.5); GRAN % 66.9 % (50.0-68.0); HEMATOCRIT 41.7 % (36.0-48.0); LYMPH # 1.5 (1.2-3.4); MEAN CELL VOLUME 89.5 fl (80.0-105.0); MEAN CORPUSCULAR HEMOGLOBIN 30.5 pg (25.0-35.0); MEAN CORPUSCULAR HGB CONC 34.1 g/dl (31.0-37.0); MEAN PLATELET VOLUME 9.6 fl (7.0-11.0); MONO # 0.5 (0.1-0.6); MONO % 7.6 % (1.0-6.0); RED CELL DISTRIBUTION WIDTH 14.4 % (11.5-14.5); WHITE BLOOD COUNT 6.2 10^3/ul (4.5-11.0)
[2017-01-02 14:31] LABS: ALB/GLOB RATIO 1.5 (1.1-1.8); ALKALINE PHOSPHATASE 63 U/L (38-126); AST/SGOT 21 U/L (14-36); BILIRUBIN,TOTAL 0.6 mg/dL (0.2-1.3); BLOOD UREA NITROGEN 15 mg/dL (7-21); CALCIUM 9.3 mg/dL (8.4-10.5); CARBON DIOXIDE 22 mmol/L (21-33); CHLORIDE 107 mmol/L (98-107); GFR AFRICAN-AMERICAN > 60; GLUCOSE,RANDOM 107 mg/dL (70-110); MAGNESIUM 2.1 mg/dL (1.7-2.2); POTASSIUM 3.7 mmol/L (3.6-5.0); SODIUM 141 mmol/L (132-148)
[2017-01-02 14:38] LABS: ALT/SGPT < 6 U/L (7-56)
[2017-01-02] MEDS ORDERED: Oxycodone/Acetaminophen 5/325 mg Tab PO STA (14:54)
[2017-01-02 15:15] VITALS: BP 114/74; PULSE 64
--- NOTE | 2017-01-02 16:23 | ED PDOC ---
Arrival/HPI - General Chief Complaint: Weakness/Neurological Deficit Time Seen by Provider: 01/02/17 13:19 Historian: Patient - History of Present Illness Narrative History of Present Illness (Text): 01/02/17 16:17 A 36 year old female presents to the emergency department complaining of mild bilateral lower extremity weakness. Patient also notes chronic lower back pain radiating down her right leg. Patient states she was seen a few days ago for similar complaints. Patient was going to be admitted for hypokalemia, however she signed out against medical advice. Patient reports she has been taking potassium supplements since. Patient denies any fever, chills, nausea, vomiting , diarrhea, abdominal pain, chest pain, shortness of breath or any other complaints. Time/Duration: Other (few days) Symptom Course: Unchanged Quality: Other Severity Level: Mild Context: Home Past Medical History - Provider Review Nursing Documentation Reviewed: Yes - Infectious Disease Hx of Infectious Diseases: None - Tetanus Immunization Tetanus Immunization: Unknown - Cardiac Hx Cardiac Disorders: Yes Hx Congestive Heart Failure: No Hx Hypertension: Yes - Pulmonary Hx Respiratory Disorders: Yes Hx Asthma: Yes Hx Chronic Obstructive Pulmonary Disease (COPD): No - Neurological Hx Neurological Disorder: Yes Hx Headaches: Yes Hx Migraine: Yes Hx Seizures: No - HEENT Hx HEENT Disorder: No - Renal Hx Renal Disorder: No - Endocrine/Metabolic Hx Endocrine Disorders: Yes - Hematological/Oncological Hx Blood Disorders: No - Integumentary Hx Dermatological Disorder: No - Musculoskeletal/Rheumatological Hx Musculoskeletal Disorders: Yes Hx Arthritis: No Hx Back Pain: Yes Hx Fractures: Yes (left foot) Hx Rheumatoid Arthritis: No Hx Spinal Stenosis: Yes - Gastrointestinal Hx Gastrointestinal Disorders: No - Genitourinary/Gynecological Hx Genitourinary Disorders: No Hx Sexually Transmitted Diseases: No - Psychiatric Hx Psychophysiologic Disorder: No Hx Substance Use: No - Surgical History Hx Orthopedic Surgery: Yes Hx Tubal Ligation: Yes Other/Comment: cervical fusion sx - Anesthesia Hx Anesthesia: Yes Hx Anesthesia Reactions: No Hx Malignant Hyperthermia: No - Suicidal Assessment Feels Threatened In Home Enviroment: No Family/Social History - Physician Review Nursing Documentation Reviewed: Yes Family/Social History: No Known Family HX Smoking Status: Heavy Smoker > 10 Cigarettes Daily Hx Alcohol Use: No Hx Substance Use: No Allergies/Home Meds Allergies/Adverse Reactions: Allergies clarithromycin [From Biaxin] Allergy (Verified 01/02/17 13:13) NAUSEA Penicillins Allergy (Verified 01/02/17 13:13) RASH sumatriptan [From Imitrex] Adverse Reaction (Verified 01/02/17 13:13) ANAPHYLAXIS sumatriptan succinate [From Imitrex] Adverse Reaction (Verified 01/02/17 13:13) ANAPHYLAXIS Home Medications: Home Meds Medication Instructions Recorded Confirmed Topiramate [Topamax] 100 mg PO BID 04/13/16 01/02/17 hydroCHLOROthiazide [Hydrodiuril] 1 tab PO DAILY 09/01/16 01/02/17 diaZEpam [Valium] 1 tab PO PRN PRN 01/02/17 01/02/17 oxyCODONE [oxycodone Hydrochloride] 10 mg PO TID 01/02/17 01/02/17 Review of Systems - Physician Review All systems were reviewed & negative as marked: Yes - Review of Systems Constitutional: absent: Fevers, Night Sweats Respiratory: absent: SOB Cardiovascular: absent: Chest Pain Gastrointestinal: absent: Abdominal Pain, Diarrhea, Nausea, Vomiting Musculoskeletal: Back Pain (chronic back pain radiating down right leg), Other ( Bilateral lower extemity weakness) Physical Exam Vital Signs Reviewed: Yes Vital Signs Temp Pulse Resp BP Pulse Ox 01/02/17 15:14 64 18 114/74 98 01/02/17 14:15 69 18 116/75 98 01/02/17 13:37 98.8 F 73 18 118/85 98 01/02/17 13:08 98.8 F 73 18 118/85 100 Temperature: Afebrile Blood Pressure: Normal Pulse: Regular Respiratory Rate: Normal Appearance: Positive for: Well-Appearing, Non-Toxic, Comfortable Pain Distress: None Mental Status: Positive for: Alert and Oriented X 3 Finger Stick Blood Glucose: 118 - Systems Exam Head: Present: Atraumatic, Normocephalic Pupils: Present: PERRL Extroacular Muscles: Present: EOMI Conjunctiva: Present: Normal Mouth: Present: Moist Mucous Membranes Neck: Present: Normal Range of Motion Respiratory/Chest: Present: Clear to Auscultation, Good Air Exchange. No: Respiratory Distress, Accessory Muscle Use Cardiovascular: Present: Regular Rate and Rhythm, Normal S1, S2. No: Murmurs Abdomen: Present: Normal Bowel Sounds. No: Tenderness, Distention, Peritoneal Signs Back: Present: Normal Inspection Upper Extremity: Present: Normal Inspection. No: Cyanosis, Edema Lower Extremity: Present: Normal Inspection. No: Edema Neurological: Present: GCS=15, CN II-XII Intact, Speech Normal Skin: Present: Warm, Dry, Normal Color. No: Rashes Psychiatric: Present: Alert, Oriented x 3, Normal Insight, Normal Concentration Medical Decision Making ED Course and Treatment: 01/02/17 16:17 Impression: A 36 year old female with bilateral lower extremity weakness and chronic back pain radiating down right lower extremity. Physical exam unremarkable. Plan: -- Labs -- Toradol, Percocet and IV fluids -- Reassess and disposition Progress Notes: Patient reports she will follow up with her pain management doctor. Patient has a scheduled appointment tomorrow. - Lab Interpretations Lab Results: 01/02/17 14:00 01/02/17 14:00 Lab Results 01/02/17 14:00: Sodium 141, Potassium 3.7, Chloride 107, Carbon Dioxide 22, Anion Gap 16, BUN 15, Creatinine 0.9, Est GFR ( Amer) > 60, Est GFR (Non- Af Amer) > 60, Random Glucose 107, Calcium 9.3, Magnesium 2.1, Total Bilirubin 0.6, AST 21, ALT < 6 L, Alkaline Phosphatase 63, Total Protein 7.0, Albumin 4.1 , Globulin 2.8, Albumin/Globulin Ratio 1.5 01/02/17 14:00: WBC 6.2 D, RBC 4.66, Hgb 14.2, Hct 41.7, MCV 89.5, MCH 30.5, MCHC 34.1, RDW 14.4, Plt Count 264, MPV 9.6, Gran % 66.9, Lymph % (Auto) 24.0, [place] % (Auto) 7.6 H, Eos % (Auto) 1.0 L, Baso % (Auto) 0.5, Gran # 4.16, Lymph # 1.5, Kaufman # 0.5, Eos # 0.1, Baso # 0.03 01/02/17 13:34: POC Glucose (mg/dL) 118 H - Medication Orders Current Medication Orders: Discontinued Medications Sodium Chloride (Sodium Chloride 0.9%) 1,000 mls @ 999 mls/hr IV .Q1H1M STA Stop: 01/02/17 14:49 Last Admin: 01/02/17 14:14 Dose: 999 mls/hr Ketorolac Tromethamine (Toradol) 30 mg IVP STAT STA Stop: 01/02/17 13:50 Last Admin: 01/02/17 14:15 Dose: 30 mg Oxycodone/Acetaminophen (Percocet 5/325 Mg Tab) 2 tab PO STAT STA Stop: 01/02/17 14:55 Last Admin: 01/02/17 15:08 Dose: 2 tab - Scribe Statement The provider has reviewed the documentation as recorded by the Lastibkanchan Rojas Provider Scribe Attestation: All medical record entries made by the Scribe were at my direction and personally dictated by me. I have reviewed the chart and agree that the record accurately reflects my personal performance of the history, physical exam, medical decision making, and the department course for this patient. I have also personally directed, reviewed, and agree with the discharge instructions and disposition. Disposition/Present on Arrival - Present on Arrival Any Indicators Present on Arrival: No History of DVT/PE: No History of Uncontrolled Diabetes: No Urinary Catheter: No History of Decub. Ulcer: No History Surgical Site Infection Following: None - Disposition Have Diagnosis and Disposition been Completed?: Yes Diagnosis: Back pain, Muscle cramp Disposition: HOME/ ROUTINE Disposition Time: 14:40 Condition: GOOD Discharge Instructions (ExitCare): Back Pain (ED) Additional Instructions: Thank you for letting us take care of you today. Your provider was Dr. Monge. You were treated for back and leg pain. The emergency medical care you received today was directed at your acute symptoms. If you were prescribed any medication, please fill it and take as directed. It may take several days for your symptoms to resolve. Return to the Emergency Department if your symptoms worsen, do not improve, or if you have any other problems. Please contact your doctor or call one of the physicians/clinics you have been referred to that are listed on the Patient Visit Information form that is included in your discharge packet. Bring any paperwork you were given at discharge with you along with any medications you are taking to your follow up visit. Our treatment cannot replace ongoing medical care by a primary care provider (PCP) outside of the emergency department. Thank you for allowing the [facility] team to be part of your care today. Follow up with your pain management tomorrow as scheduled and your primary doctor in 2-3 days for re-evaluation. Referrals: Erwin Nichols JD, MD [Primary Care Provider] - Follow up with primary Forms: mChron (Israeli)
== END 2017-01-02 15:18 | disposition home or self-care (01) ==
LOC: ED 12:52
DX: R25.2 Cramp and spasm (principal); M54.9 Dorsalgia, unspecified; I10 Essential (primary) hypertension; F17.210 Nicotine dependence, cigarettes, uncomplicated
CPT/HCPCS: 80053; 82948; 83735; 85025; 96374; 99285; J1885; J7040